=== PATIENT | female | born 1965 | race African-American/Black ===

== ENCOUNTER 2025-01-17 16:48 | Inpatient (IN) | payer MEDICARE, MEDICAID, SELFPAY ==
[2025-01-17 16:58] VITALS: BP 82/56; PULSE 99; RESP 20; TEMP 37.4; O2SAT 92
[2025-01-17 17:04] LABS: Glucose Point of Care 128 mg/dl (65-105)
[2025-01-17 17:08] VITALS: O2SAT 87
[2025-01-17 17:10] VITALS: O2SAT 97
--- NOTE | 2025-01-17 17:11 | PC.NURSE ---
Dr. Lam notified that pt. is hypotensive and hypoxic. 2x family members brought to bedside and are speaking with .
--- NOTE | 2025-01-17 17:29 | ED.GENADULT ---
HPI - General Adult General Chief complaint: Altered Mental Status Stated complaint: AMS Time Seen by Provider: 01/17/25 17:07 History of Present Illness HPI narrative: This is a debilitated 59-year-old female [facility] for altered mental status. Patient is typically A&O times 1-2. She is currently responsive to pain only. She is hypotensive and hypoxic. She is unable to provide any information guarding interview. The patient's sister Melyssa Mccoy and Pancho Laws are at bedside. They state the patient has been bedbound since she had a lower leg amputation. Her remaining 3 extremities are contracted. They say her condition is beginning progressively worse and the penitentiary has been discussing placing G tube. She is emaciated and cachectic. They state quality of life is poor at baseline. Goals of care were discussed with them and the patient be made comfort measures only. Related Data Allergies Allergy/AdvReac Type Severity Reaction Status Date / Time No Known Allergies Allergy Verified 01/17/25 17:07 Exam Narrative: APPEARANCE: Ill-appearing, cachectic, temporal wasting Head: atraumatic. protruding cheekbones, sunken eyes EYES: EOMI, NOSE: Atraumatic NECK: Trachea midline RESPIRATORY: Hypoxic, coarse lung sounds minimal air movement CARDIOVASCULAR: RRR, no edema ABDOMINAL: Non-distended soft nontender MUSCULOSKELETAl: No obvious deformities significant muscle wasting, right BKA NEURO responsive pain SKIN:: Poor turgor PSYCHIATRIC: Responsive to pain Course Vital Signs Vital signs: Vital Signs Temperature 99.3 F 01/17/25 16:58 Pulse Rate 99 01/17/25 16:58 Respiratory Rate 20 01/17/25 16:58 Blood Pressure 82/56 L 01/17/25 16:58 Pulse Oximetry 92 01/17/25 16:58 Oxygen Delivery Room Air 01/17/25 16:58 Temperature 99.3 F 01/17/25 16:58 Pulse Rate 99 01/17/25 16:58 Respiratory Rate 20 01/17/25 16:58 Blood Pressure 82/56 L 01/17/25 16:58 Pulse Oximetry 97 01/17/25 17:10 Oxygen Delivery Nasal Cannula 01/17/25 17:10 Oxygen Flow Rate 2 01/17/25 17:10 Medical Decision Making [facility] Narrative Medical decision making narrative: -Course: 59-year-old female presenting with altered mental status, hypoxia and hypotension. Patient is a emaciated and cachectic. Goals of care were discussed with the patient's sister and her son. The patient's quality of life is very poor, she is A&O times 1-2 at baseline, she is bed-bound and contracted they do not believe that she would want measures to prolong her life. The patient has been made comfort measures only and hospice has been consulted. The patient's family has had poor personal experiences with morphine. They requested no morphine. They are okay with other forms of pain control and were agreeable to ibuprofen Ativan and glycopyrrolate. The [facility] is not available to evaluate the patient until tomorrow afternoon. Patient will be placed in our hospital service for hospice care. Vital Signs Vital Signs: Vital Signs Temperature 99.3 F 01/17/25 16:58 Pulse Rate 99 01/17/25 16:58 Respiratory Rate 20 01/17/25 16:58 Blood Pressure 82/56 L 01/17/25 16:58 Pulse Oximetry 92 01/17/25 16:58 Oxygen Delivery Room Air 01/17/25 16:58 Temperature 99.3 F 01/17/25 16:58 Pulse Rate 99 01/17/25 16:58 Respiratory Rate 20 01/17/25 16:58 Blood Pressure 82/56 L 01/17/25 16:58 Pulse Oximetry 97 01/17/25 17:10 Oxygen Delivery Nasal Cannula 01/17/25 17:10 Oxygen Flow Rate 2 01/17/25 17:10 Lab Data Labs: Lab Results 01/17/25 Range/Units 17:02 POC Capillary Glucose 128 H (65-105) mg/dl Discharge Plan Discharge Clinical Impression: Altered mental status, End of life care Patient Disposition: Hospice [facility] Inpatient Condition: Terminal Patient Language: Mosotho Follow-up/Referrals: Phill,Davina Farris MD [Primary Care Provider] -
--- NOTE | 2025-01-17 18:00 | PC.NURSE ---
Son (GAYATRI) Brady left bedside. He left his phone number and can be reached anytime [phone].
[2025-01-17] MEDS: GLYCOPYRROLATE INJ (*SP) 0.2 MG/ML VIAL IV PUSH (18:05)
[2025-01-17] MEDS: IBUPROFEN IV 800 MG/200 ML 800 MG/200 ML BAG 400 MG IVPB (18:06)
[2025-01-17] MEDS: LORazepam INJ (*CRX) 2 MG/ML VIAL 1 MG IV PUSH (18:07)
--- NOTE | 2025-01-17 18:53 | PCCCNOTE ---
Called to ER for hospice consult. Pt with AMS and unable to participate. Multiple family members present including son, and 2 siblings. I spoke with family regarding hospice, family still wants antibiotics given. Dr Lam spoke with family extensively and thought family on board with hospice. I again spoke with family and they still wished some treatment just not to aggressive. I informed Dr Lam and pt will be admitted for observation. SAVANNA notified and will reach out to son and family for informational meeting regarding Hospice. I spoke with Min from [facility].
--- NOTE | 2025-01-17 20:30 | ADMGEN ---
This patient, Alisson Deleon, was admitted to Medical Room 247-. Patient/family oriented to hospital policies and general routines including ID bracelet, bed and alarms, visiting hours, pain management, procedures, bathroom and other care routines, personal items, smoking policy, room service/diet, and visiting hours. Information on how to activate the Rapid Response Team has been discussed. Patient/Family are encouraged to report perceived risks to care and to ask questions if they do not understand what they are told or what they should do.
--- NOTE | 2025-01-17 20:46 | PC.NURSE ---
DAUGHTER IN ROOM AND TAKING PICTURES, INFORMED HER WE ARE TAKING PICTURES AND THEY WILL BE IN HER PERMANENT CHART, CONTINUES TO TAKE PICTURES, REFUSING TO LEAVE ROOM
[2025-01-17 20:53] VITALS: BP 69/47; PULSE 85; RESP 24; TEMP 37.1; O2SAT 98
[2025-01-17 20:55] VITALS: BMI 12.4
[2025-01-17 21:00] VITALS: O2SAT 98
--- NOTE | 2025-01-17 21:56 | PC.NURSE ---
Spoke to Son Luis who is the pt's POA and went asked him admission questions. Son confirmed that patient is a DNR and is Comfort measures at this time.
--- NOTE | 2025-01-17 23:36 | P.HP_ITS ---
H&P: HPI History of Present Illness Date/Time: 01/17/25 21:45 Chief Complaint: Altered mental status. Narrative: This is an unfortunate 59-year-old female with history of dementia, hypertension, rheumatoid arthritis, and anemia who presented to the emergency department via EMS from [facility] for evaluation of altered mental status. The following history is obtained via a review of her electronic medical records as well as information provided by family members. She has been bed-bound since a right lower extremity amputation and she is contracted in her 3 remaining extremities. At baseline she is alert and oriented times 1 to 2. Over the last couple of months she has not been eating much and has progressively lost weight. There have been discussions about placing a G-tube but that has not yet been performed. Staff at her facility report that she is increasingly lethargic and today was not communicating. There were no reports of fever, vomiting, diarrhea, or sick contacts. At the time of my evaluation, she is asleep and does not answer questions or follow commands. She does withdrawal to pain. In the ED: Vital signs on arrival include a temperature of 99.3?, blood pressure 82/56, pulse 99, respiratory 20, SpO2 90% on room air. ED physician spent quite a bit of time with the patient's family discussing goals of care. The patient's son, Veto Deleon, is her healthcare [id number] and he believes that the patient's quality of life is poor and he does not want any measures to prolong her life and suffering. The patient's sister was also present for these discussions and she is in agreement. A consult was placed to [facility] hospice however they are not able to see the patient until tomorrow and she is being admitted to the hospitalist service for comfort care overnight. Review of Systems Review of Systems: Unable to obtain given clinical condition. [facility] Past Medical History Medical History (Updated 01/17/25 @ 23:45 by Samira Godoy PA-C) Rheumatoid arthritis Severe protein-calorie malnutrition Anemia Hypertension Dementia Surgical History Surgical History (Updated 01/17/25 @ 23:46 by Samira Godoy PA-C) History of disarticulation of right hip Family History Family History Other Unknown family medical history Social History Social History (Updated 01/17/25 @ 23:46 by Samira Godoy PA-C) Social History: Healthcare power of attorney at law: Veto Deleon, son ([phone]). Code status: Do not resuscitate, comfort measures only. Smoking status: Never smoker Alcohol intake: never Substance use: never Substance use type: does not use Spiritual care concerns: No Meds Home Medications and Allergies Home Medications ?Medication ?Instructions ?Recorded ?Confirmed ?Type acetaminophen 325 mg capsule 650 mg PO Q6H pain/fever 01/17/25 01/17/25 History ascorbic acid (vitamin C) 500 mg 500 mg PO DAILY 01/17/25 01/17/25 History capsule calcitriol 1 mcg/mL oral solution 0.5 mcg PO .am 01/17/25 01/17/25 History diclofenac sodium 1 % topical gel 2 g topical TID 01/17/25 01/17/25 History (Arthritis Pain (diclofenac)) ergocalciferol (vitamin D2) 50,000 50,000 unit PO WEEKLY 01/17/25 01/17/25 History unit tablet ferrous sulfate 325 mg (65 mg 325 mg PO DAILY 01/17/25 01/17/25 History iron) tablet,delayed release hydrocodone 5 mg-acetaminophen 325 1 tablet PO Q4H PRN pain 01/17/25 01/17/25 History mg tablet hydroxyzine HCl 25 mg tablet 25 mg PO TID PRN itching 01/17/25 01/17/25 History multivitamin 1 tablet PO DAILY 01/17/25 01/17/25 History pentoxifylline 400 mg 400 mg PO BID 01/17/25 01/17/25 History tablet,extended release silver sulfadiazine 1 % topical 1 applic topical DAILY 01/17/25 01/17/25 History cream triamcinolone acetonide 0.1 % 1 applic topical Q12H 01/17/25 01/17/25 History topical ointment Allergies Allergy/AdvReac Type Severity Reaction Status Date / Time No Known Allergies Allergy Verified 01/17/25 17:07 Vital Signs Vital Signs - 24 hr 01/17/25 16:58 01/17/25 17:08 01/17/25 17:10 Temperature 99.3 F Pulse Rate 99 Respiratory Rate 20 Blood Pressure 82/56 L Pulse Oximetry 92 87 L 97 Oxygen Delivery Room Air Room Air Nasal Cannula Oxygen Flow Rate 2 01/17/25 20:53 01/17/25 21:00 Temperature 98.7 F Pulse Rate 85 Respiratory Rate 24 H Blood Pressure 69/47 L Pulse Oximetry 98 98 Oxygen Delivery Nasal Cannula Oxygen Flow Rate 2 Exam Narrative: General: Emaciated female appearing much older than her stated age. Weight: 30 kg. BMI: 12.5. HEENT: Normocephalic, atraumatic. Pupils are sluggishly reactive. Tacky mucous membranes. Neck: Supple. Respiratory: Respirations are nonlabored. Lung sounds diminished anteriorly. Cardiovascular: Regular rate and rhythm with S1-S2. Gastrointestinal: Abdomen is soft, scaphoid, and nontender. Positive bowel sounds. Skin: Warm and dry. Patient has pressure ulcers which were not examined. Decreased skin turgor. Extremities: No cyanosis, clubbing, or edema. Status post right hip disarticulation. Neurological: Unresponsive but will withdrawal somewhat to pain. Significant muscle wasting. Psychiatric: Unable to assess. Assessment and Plan Assessment and plan (1) End of life care: Code(s): Z51.5 - Encounter for palliative care Status: Acute (2) Dementia: Code(s): F03.90 - Unspecified dementia, unspecified severity, without behavioral disturbance, psychotic disturbance, mood disturbance, and anxiety Status: Acute (3) Severe protein-calorie malnutrition: Code(s): E43 - Unspecified severe protein-calorie malnutrition Status: Acute Plan The patient presented to the emergency department for evaluation of altered mental status and lethargy as detailed in HPI. ED physician had a long talk with the patient's son Veto who is the healthcare power of attorney at law. He reports that the patient has a poor quality of life and would not want any measures to prolong her life. She is being admitted for comfort measures only. Lorazepam available as needed. They request that she does not receive morphine. [facility]osp[facility] will be seeing the patient in the morning. Quality If No VTE Prophylaxis Answer both mechanical and pharmacologic: Reason no mechanical VTE proph: low risk/not indicated Reason no pharmacologic proph: low risk/not indicated The patient has been admitted under observation status. Hospitalist MIPS Advance Care Plan I have confirmed that the patient's Advanced Care Plan is present, code status is documented, or surrogate decision maker is listed in patient medical record.: Yes Medication Reconciliation I have utilized all available resources to obtain, update and review the patients current medications (includes all prescriptions, OTC, herbals, cannabis, and nutritional supplements).: Yes
[2025-01-18 05:01] VITALS: BP 102/66; PULSE 102; RESP 20; TEMP 36.6; O2SAT 97
--- NOTE | 2025-01-18 07:24 | PCWOUND ---
WOCN NOTE Recieved consult for multiple wounds to patient. Per orders and notes, patient's family is meeting with [facility] today. Patient has comfort measures ordered. Will not assess this patient at this time to make patient comfortable. Staff to apply comfort dressings as needed.
--- NOTE | 2025-01-18 07:26 | PM.IMPN ---
Progress Note: A&P Assessment and Plan (1) End of life care: Code(s): Z51.5 - Encounter for palliative care Status: Acute (2) Dementia: Code(s): F03.90 - Unspecified dementia, unspecified severity, without behavioral disturbance, psychotic disturbance, mood disturbance, and anxiety Status: Acute (3) Severe protein-calorie malnutrition: Code(s): E43 - Unspecified severe protein-calorie malnutrition Status: Acute Plan The patient presented to the emergency department for evaluation of altered mental status and lethargy. ED physician had a long talk with the patient's son Veto who is the healthcare power of mergers and acquisitions attorney. He reports that the patient has a poor quality of life and would not want any measures to prolong her life. She is being admitted for comfort measures only. Lorazepam available as needed. They request that she does not receive morphine. [facility] Hospice will be seeing the patient in the morning. Time Spent With Patient Time with patient: 25 - 35 minutes Subjective Date/time seen: 01/18/25 07:26 Interval history: 59-year-old female with PMH/of dementia, hypertension, rheumatoid arthritis, and anemia who admitted from [facility] for evaluation of altered mental status. Family members provided info upon admission. Pt had been bed-bound since a right lower extremity amputation and she is contracted in her 3 remaining extremities. At baseline she is alert and oriented times 1 to 2. Over the last couple of months she has not been eating much and has progressively lost weight. There have been discussions about placing a G-tube but that has not yet been performed. Staff at her facility report that she is increasingly lethargic and today was not communicating. There were no reports of fever, vomiting, diarrhea, or sick contacts. At the time of my evaluation, she is asleep and does not answer questions or follow commands. She does withdrawal to pain. In the ED: Vital signs on arrival include a temperature of 99.3?, blood pressure 82/56, pulse 99, respiratory 20, SpO2 90% on room air. ED physician spent quite a bit of time with the patient's family discussing goals of care. The patient's son, Veto Deleon, is her healthcare [id number] and he believes that the patient's quality of life is poor and he does not want any measures to prolong her life and suffering. The patient's sister was also present for these discussions and she is in agreement. A consult was placed to [facility] hospice however they are not able to see the patient until tomorrow and she is being admitted to the hospitalist service for comfort care overnight. Pt is seen and examined. End of life consults in place- care coordination following. Review of Systems Review of Systems: Unable to obtain given clinical condition. Exam Narrative: General: Emaciated female appearing much older than her stated age. Weight: 30 kg. BMI: 12.5. HEENT: Normocephalic, atraumatic. Pupils are sluggishly reactive. Tacky mucous membranes. Neck: Supple. Respiratory: Respirations are nonlabored. Lung sounds diminished anteriorly. Cardiovascular: Regular rate and rhythm with S1-S2. Gastrointestinal: Abdomen is soft, scaphoid, and nontender. Positive bowel sounds. Skin: Warm and dry. Patient has pressure ulcers which were not examined. Decreased skin turgor. Extremities: No cyanosis, clubbing, or edema. Status post right hip disarticulation. Neurological: Unresponsive but will withdrawal somewhat to pain. Significant muscle wasting. Psychiatric: Unable to assess. Objective Data Vital Signs Vital Signs: Vital Signs - 24 hr 01/17/25 16:58 01/17/25 17:08 01/17/25 17:10 Temperature 99.3 F Pulse Rate 99 Respiratory Rate 20 Blood Pressure 82/56 L Pulse Oximetry 92 87 L 97 Oxygen Delivery Room Air Room Air Nasal Cannula Oxygen Flow Rate 2 01/17/25 20:53 01/17/25 21:00 01/18/25 05:01 Temperature 98.7 F 98 F Pulse Rate 85 102 H Respiratory Rate 24 H 20 Blood Pressure 69/47 L 102/66 Pulse Oximetry 98 98 97 Oxygen Delivery Nasal Cannula Oxygen Flow Rate 2 Intake/Output Intake/Output: Intake & Output 01/15/25 01/16/25 01/17/25 01/18/25 23:59 23:59 23:59 23:59 Intake Total 200 0 Output Total 200 Balance 200 -200 Labs Labs: Laboratory Results - last 24 hr 01/17/25 17:02 POC Capillary Glucose 128 H
[2025-01-18 08:00] VITALS: O2SAT 94
[2025-01-18 10:00] VITALS: O2SAT 94
[2025-01-18 14:00] VITALS: BP 129/95; PULSE 89; RESP 20; TEMP 37.5; O2SAT 90
[2025-01-18] MEDS: IBUPROFEN IV 400 MG in SODIUM CHLORIDE 0.9% IV 100 ML 208 MG IVPB (18:42)
[2025-01-18 20:00] VITALS: O2SAT 93
[2025-01-18 20:05] VITALS: BP 112/90; PULSE 116; RESP 18; TEMP 36.6; O2SAT 93
[2025-01-19 06:00] VITALS: BP 134/89; PULSE 122; RESP 20; TEMP 36.5; O2SAT 95
[2025-01-19 08:00] VITALS: O2SAT 94; O2SAT 95
[2025-01-19] MEDS: KETOROLAC 15 MG/ML VIAL (*BKC) IV PUSH (12:29)
--- NOTE | 2025-01-19 13:19 | PM.DS ---
DS: Admitting Diagnosis Discharge Date 01/19 Admitting Diagnosis ams DS: Discharge Diagnosis Discharge Diagnosis (1) End of life care: Code(s): Z51.5 - Encounter for palliative care Status: Acute (2) Dementia: Code(s): F03.90 - Unspecified dementia, unspecified severity, without behavioral disturbance, psychotic disturbance, mood disturbance, and anxiety Status: Acute (3) Severe protein-calorie malnutrition: Code(s): E43 - Unspecified severe protein-calorie malnutrition Status: Acute DS: Summary Hospital Course Hospital Course: 59-year-old female with PMH/of dementia, hypertension, rheumatoid arthritis, and anemia who admitted from [facility] for evaluation of altered mental status. Pt had been bed-bound since a right lower extremity amputation and she is contracted in her 3 remaining extremities. At baseline she is alert and oriented times 1 to 2. Over the last couple of months she has not been eating much and has progressively lost weight. There have been discussions about placing a G-tube but that has not yet been performed. Staff at her facility report that she is increasingly lethargic. There were no reports of fever, vomiting, diarrhea, or sick contacts. She does withdrawal to pain. In the ED: Vital signs on arrival include a temperature of 99.3?, blood pressure 82/56, pulse 99, respiratory 20, SpO2 90% on room air. ED physician spent quite a bit of time with the patient's family discussing goals of care. The patient's son, Veto Deleon, is her healthcare [id number] and he believes that the patient's quality of life is poor and he does not want any measures to prolong her life and suffering. The patient's sister was also present for these discussions and she is in agreement. A consult was placed to [facility] hospice. [facility] accepted pt and pt is to be transferred back to [facility] with hospice care. Status at Discharge Functional status at discharge: bed bound Overall status at discharge: patient is not back to baseline Time Spent with Patient Time attestation: Total time spent providing and/or coordinating discharge services: Time spent: Greater than 30 minutes Exam Narrative: General: Emaciated female appearing much older than her stated age. Weight: 30 kg. BMI: 12.5. HEENT: Normocephalic, atraumatic. Pupils are sluggishly reactive. Tacky mucous membranes. Neck: Supple. Respiratory: Respirations are nonlabored. Lung sounds diminished anteriorly. Cardiovascular: Regular rate and rhythm with S1-S2. Gastrointestinal: Abdomen is soft, scaphoid, and nontender. Positive bowel sounds. Skin: Warm and dry. Patient has pressure ulcers which were not examined. Decreased skin turgor. Extremities: No cyanosis, clubbing, or edema. Status post right hip disarticulation. Neurological: Unresponsive but will withdrawal somewhat to pain. Significant muscle wasting. Psychiatric: Unable to assess. Discharge Plan Discharge Attending physician on discharge: Sravan West Discharging Clinician: Charu Saucedo Patient Disposition: Hospice - Medical Facility Activity: may shower Diet: as tolerated and no preference Discharge Instructions: Furtehr medication management per hospice. Patient Language: Burundian Stand Alone Forms: General Discharge Information Follow-up/Referrals: Phill,Davina Farris MD [Primary Care Provider] - 2 Weeks Discharge Medications: Continued acetaminophen 325 mg capsule 650 mg PO Q6H ascorbic acid (vitamin C) 500 mg capsule 500 mg PO DAILY calcitriol 1 mcg/mL solution 0.5 mcg PO .am ergocalciferol (vitamin D2) 50,000 unit tablet 50,000 unit PO WEEKLY Rx Instructions: Wednesday ferrous sulfate 325 mg (65 mg iron) tablet,delayed release (DR/EC) 325 mg PO DAILY hydrocodone-acetaminophen 5-325 mg tablet 1 tablet PO Q4H PRN (Reason: pain) hydroxyzine HCl 25 mg tablet 25 mg PO TID PRN (Reason: itching) multivitamin Tablet 1 tablet PO DAILY pentoxifylline 400 mg tablet extended release 400 mg PO BID silver sulfadiazine 1 % cream 1 applic TOPICAL DAILY Rx Instructions: wound to left hip/ prn for soiled or dislodged as well as daily triamcinolone acetonide 0.1 % ointment 1 applic TOPICAL Q12H Rx Instructions: face, neck and body topically for dry flaky skin areas diclofenac sodium [Arthritis Pain (diclofenac)] 1 % gel 2 g topical TID Rx Instructions: apply to single elbow, wrist or hand; for hand includes palm/fingers/back of hand Date of admission: 01/18/25 19:12 Primary Care Provider: ArabellaDavina Admitting Provider: Sravan West Attending physician on admission: Sravan West Condition: Terminal Hospitalist MIPS Heart Failure (Exclusion) Patient has history of Heart Transplant or Left Ventricular Assistive Device?: No IF YES, STOP HERE Heart Failure (Qualifier) Patient has current or prior documentation of LVEF less than or equal to 40%, or mod/servere depressed LVSF?: No IF NO, STOP HERE
[2025-01-19 14:00] VITALS: BP 109/74; PULSE 137; RESP 44; TEMP 37.6; O2SAT 98
== END 2025-01-19 15:50 | disposition hospice, home (50) | DRG 951 ==
LOC: ANHED 17:37 → ANH2MED 19:25
PROVIDERS: Admitting Provider General Practice; Emergency Provider Emergency Medicine; PCP Internal Medicine; Visit Provider Nurse Practitioner
DX: Z51.5 Encounter for palliative care (principal); E43 Unspecified severe protein-calorie malnutrition; Z68.1 Body mass index [BMI] 19.9 or less, adult; E88.A Wasting disease (syndrome) due to underlying condition; F03.90 Unspecified dementia, unspecified severity, without behavioral disturbance, psychotic disturbance, mood disturbance, and anxiety; M06.9 Rheumatoid arthritis, unspecified; D64.9 Anemia, unspecified; I10 Essential (primary) hypertension; R09.02 Hypoxemia; Z74.01 Bed confinement status; I95.9 Hypotension, unspecified; Z66 Do not resuscitate; Z89.611 Acquired absence of right leg above knee
CPT/HCPCS: 82948; 96365; 96366; 96374; 96375; 99284; 99285; G0378; J1596; J1741; J1885; J2060

== ENCOUNTER 2025-01-19 19:22 | Emergency (ER) | payer MEDICARE, MEDICAID, SELFPAY ==
[2025-01-19 19:28] VITALS: BP 66/54; PULSE 140; RESP 25; TEMP 37.1; O2SAT 94
--- NOTE | 2025-01-19 19:57 | ED_ITS ---
HPI - General Adult General Chief complaint: Unspecified Stated complaint: increased sob, decreased o2 Time Seen by Provider: 01/19/25 19:36 History of Present Illness HPI narrative: 59-year-old debilitated female on end of life care presenting for low blood pressure oxygen levels. She was seen in our emergency department 2 days ago. She was admitted for hospice and was discharged [facility] hospice care. Unfortunately due to weather the patient's son had not been able to meet with hospice team and finalize everything. Today her condition continued to worsen as expected. [facility] center back to the hospital for re-evaluation. I reached out to the son and power of senior trial attorney Veto Deleon and he says the plan has not changed. She is still comfort measures only. No efforts are to be made to prolong her life. He is attempting to get into the hospital however there is severe weather at the moment. Related Data Home Medications ?Medication ?Instructions ?Recorded ?Confirmed ?Last Taken ?Type acetaminophen 325 mg capsule 650 mg PO Q6H pain/fever 01/17/25 01/17/25 Unknown History ascorbic acid (vitamin C) 500 mg 500 mg PO DAILY 01/17/25 01/17/25 Unknown History capsule calcitriol 1 mcg/mL oral solution 0.5 mcg PO .am 01/17/25 01/17/25 Unknown History diclofenac sodium 1 % topical gel 2 g topical TID 01/17/25 01/17/25 Unknown History (Arthritis Pain (diclofenac)) ergocalciferol (vitamin D2) 50,000 50,000 unit PO WEEKLY 01/17/25 01/17/25 Unknown History unit tablet ferrous sulfate 325 mg (65 mg 325 mg PO DAILY 01/17/25 01/17/25 Unknown History iron) tablet,delayed release hydrocodone 5 mg-acetaminophen 325 1 tablet PO Q4H PRN pain 01/17/25 01/17/25 Unknown History mg tablet hydroxyzine HCl 25 mg tablet 25 mg PO TID PRN itching 01/17/25 01/17/25 Unknown History multivitamin 1 tablet PO DAILY 01/17/25 01/17/25 Unknown History pentoxifylline 400 mg 400 mg PO BID 01/17/25 01/17/25 Unknown History tablet,extended release silver sulfadiazine 1 % topical 1 applic topical DAILY 01/17/25 01/17/25 Unknown History cream triamcinolone acetonide 0.1 % 1 applic topical Q12H 01/17/25 01/17/25 Unknown History topical ointment Allergies Allergy/AdvReac Type Severity Reaction Status Date / Time No Known Allergies Allergy Verified 01/17/25 17:07 [facility] Past Medical History Medical History Rheumatoid arthritis Severe protein-calorie malnutrition Anemia Hypertension Dementia Surgical History Surgical History History of disarticulation of right hip Family History Family History Other Unknown family medical history Social History Social History Social History: Healthcare power of senior trial attorney: Veto Deleon, son ([phone]). Code status: Do not resuscitate, comfort measures only. Smoking status: Never smoker Alcohol intake: never Substance use: never Substance use type: does not use Spiritual care concerns: No Exam Narrative: APPEARANCE: Ill-appearing, cachectic, temporal wasting Head: atraumatic. protruding cheekbones, sunken eyes EYES: EOMI, NOSE: Atraumatic NECK: Trachea midline RESPIRATORY: Hypoxic, coarse lung sounds minimal air movement CARDIOVASCULAR: RRR, no edema ABDOMINAL: Non-distended soft nontender MUSCULOSKELETAl: No obvious deformities significant muscle wasting, right BKA NEURO responsive pain SKIN:: Poor turgor PSYCHIATRIC: Responsive to pain Course Vital Signs Vital signs: Vital Signs Temperature 98.8 F 01/19/25 19:28 Pulse Rate 140 H 01/19/25 19:28 Respiratory Rate 25 H 01/19/25 19:28 Blood Pressure 66/54 L 01/19/25 19:28 Pulse Oximetry 94 01/19/25 19:28 Oxygen Delivery Non-Rebreather Mask 01/19/25 19:28 Oxygen Flow Rate 15 01/19/25 19:28 Temperature 98.8 F 01/19/25 19:28 Pulse Rate 140 H 01/19/25 19:28 Respiratory Rate 25 H 01/19/25 19:28 Blood Pressure 66/54 L 01/19/25 19:28 Pulse Oximetry 94 01/19/25 19:28 Oxygen Delivery Non-Rebreather Mask 01/19/25 19:28 Oxygen Flow Rate 15 01/19/25 19:28 Medical Decision Making MDM Narrative Medical decision making narrative: -Course: 59-year-old female who is DNR DNI on hospice sent from [facility]. I spoke with the patient's son and power senior trial attorney to sure that the plan was still comfort measures only. He has confirmed. Patient will receive ibuprofen gl ycopyrrolate for comfort as per the family's wishes. time of . 20:28. Family informed. Vital Signs Vital Signs: Vital Signs Temperature 98.8 F 01/19/25 19:28 Pulse Rate 140 H 01/19/25 19:28 Respiratory Rate 25 H 01/19/25 19:28 Blood Pressure 66/54 L 01/19/25 19:28 Pulse Oximetry 94 01/19/25 19:28 Oxygen Delivery Non-Rebreather Mask 01/19/25 19:28 Oxygen Flow Rate 15 01/19/25 19:28 Temperature 98.8 F 01/19/25 19:28 Pulse Rate 140 H 01/19/25 19:28 Respiratory Rate 25 H 01/19/25 19:28 Blood Pressure 66/54 L 01/19/25 19:28 Pulse Oximetry 94 01/19/25 19:28 Oxygen Delivery Non-Rebreather Mask 01/19/25 19:28 Oxygen Flow Rate 15 01/19/25 19:28 Discharge Plan Discharge Clinical Impression: End of life care Patient Disposition: Condition: Patient Language: Kazakh Prescriptions: No Action acetaminophen 325 mg capsule 650 mg PO Q6H ascorbic acid (vitamin C) 500 mg capsule 500 mg PO DAILY calcitriol 1 mcg/mL solution 0.5 mcg PO .am ergocalciferol (vitamin D2) 50,000 unit tablet 50,000 unit PO WEEKLY Rx Instructions: Wednesday ferrous sulfate 325 mg (65 mg iron) tablet,delayed release (DR/EC) 325 mg PO DAILY hydrocodone-acetaminophen 5-325 mg tablet 1 tablet PO Q4H PRN (Reason: pain) hydroxyzine HCl 25 mg tablet 25 mg PO TID PRN (Reason: itching) multivitamin Tablet 1 tablet PO DAILY pentoxifylline 400 mg tablet extended release 400 mg PO BID silver sulfadiazine 1 % cream 1 applic TOPICAL DAILY Rx Instructions: wound to left hip/ prn for soiled or dislodged as well as daily triamcinolone acetonide 0.1 % ointment 1 applic TOPICAL Q12H Rx Instructions: face, neck and body topically for dry flaky skin areas diclofenac sodium [Arthritis Pain (diclofenac)] 1 % gel 2 g topical TID Rx Instructions: apply to single elbow, wrist or hand; for hand includes palm/fingers/back of hand Follow-up/Referrals: Phill,Davina Farris MD [Primary Care Provider] -
[2025-01-19] MEDS: LORazepam INJ (*CRX) 2 MG/ML VIAL 1 MG IV PUSH (20:09)
--- NOTE | 2025-01-19 20:28 | PC.NURSE ---
EDP at bedside with asystole on the monitor. No central pulse, pupillary response, or heart tones. Time of at 2027.
== END 2025-01-20 00:55 | disposition expired ==
PROVIDERS: Emergency Provider Emergency Medicine; PCP Internal Medicine
DX: Z51.5 Encounter for palliative care (principal); F03.90 Unspecified dementia, unspecified severity, without behavioral disturbance, psychotic disturbance, mood disturbance, and anxiety; E43 Unspecified severe protein-calorie malnutrition; I10 Essential (primary) hypertension; M06.9 Rheumatoid arthritis, unspecified
CPT/HCPCS: 96374; 99284; J2060